=== PATIENT | male | born 1975 | race Caucasian/White ===

== ENCOUNTER 2018-07-16 14:23 | Emergency (ER) | payer MEDICARE ==
[~2018-07-16] VITALS: Ht 170.1 cm; Wt 58.1 kg
[~2018-07-16 14:23] MED LIST: ANAPROX DS550 MG PO; DAYPRO600 M1 PO; ROBAXIN750 MG PO; TEGRETOL200 MG PO; TRAZODONE150 MG PO; TRILAFON8 MG; TRIMOX500 MG PO; VALIUM10 MG; ZANTAC150 MG PO; ZOFRAN4 MG PO; [UNRECOGNIZED DRUG - OTHER]
[2018-07-16 14:24] VITALS: BP 103/62
[2018-07-16] MEDS ORDERED: Motrin,Rufen800 MG PO (14:38)
[2018-07-16] MEDS ORDERED: CEFADROXIL500 M1 PO (14:38)
== END 2018-07-16 16:10 | disposition home or self-care (01) ==
LOC: ED 14:23
DX: S92.422B Displaced fracture of distal phalanx of left great toe, initial encounter for open fracture (principal); Z79.899 Other long term (current) drug therapy; W55.19XA Other contact with horse, initial encounter; Y93.89 Activity, other specified; Y92.098 Other place in other non-institutional residence as the place of occurrence of the external cause; Y99.8 Other external cause status

== ENCOUNTER → 2018-08-25 | Outpatient (CLI) | payer MEDICARE ==
[~2018-08-25] MED LIST changes: +ANTIBIOTIC28.4 GM T; +CEFADROXIL500 M1 PO; +CEPHALEXIN500 M1 PO; +Motrin,Rufen800 MG PO; +SEPTDS PO
[2018-08-25 15:22] LABS: BASO # 0.1 10*3/uL (0.0-0.1); BASO % 1.2 % (0.0-1.0); EOS # 0.4 10*3/uL (0.0-0.4); EOS % 5.1 % (1.0-4.0); HEMATOCRIT 41.6 % (42.0-52.0); LYMPH # 3.5 10*3/uL (1.3-4.4); LYMPH % 45.2 % (27.0-41.0); MEAN CELL VOLUME 97.4 fl (80.0-94.0); MEAN CORPUSCULAR HGB 32.8 pg (27.0-31.0); MEAN CORPUSCULAR HGB CONC 33.7 g/dl (33.0-37.0); MEAN PLATELET VOLUME 10.5 fl (9.6-12.3); MONO # 0.7 10*3/uL (0.1-1.0); MONO % 8.6 % (3.0-9.0); NEUT # 3.1 10*3/uL (2.3-7.9); NEUT % 39.6 % (47.0-73.0); PLATELET COUNT AUTOMATED 227 10*3/uL (130-400); RED BLOOD COUNT 4.27 10*6/uL (4.50-5.90); RED CELL DISTRI WIDTH 13.5 % (0-14.5); WHITE BLOOD COUNT 7.8 10*3/uL (4.8-10.8)
[2018-08-25 15:52] LABS: ALBUMIN 3.4 gm/dl (3.1-4.5); ALKALINE PHOSPHATASE 63 U/L (45-117); BUN 12 mg/dl (7-24); CHLORIDE 106 mmol/L (98-107); CHOLESTEROL 141 mg/dL (<200); CREATININE 0.75 mg/dL (0.70-1.30); HDL CHOLESTEROL 30 mg/dl (40-60); LDL CHOLESTEROL 46 mg/dL (9-159); POTASSIUM 3.8 mmol/L (3.5-5.1); SGOT/AST 25 IU/L (3-35); SGPT/ALT 18 U/L (12-78); SODIUM 139 mmol/L (136-145); TOTAL PROTEIN 7.1 gm/dL (6.4-8.2); TRIGLYCERIDES 327 mg/dl (<150); VALPROIC ACID (DEPAKENE) 58.8 ug/ml (50-100); VLDL CHOLESTEROL 65 mg/dL (6-40)
[2018-08-25 16:12] LABS: VITAMIN D, 25-HYDROXY 24.9 ng/mL (30-100)
== END | disposition home or self-care (01) ==
LOC: LAB 14:39
PROVIDERS: Physician Assistant
DX: Z51.81 Encounter for therapeutic drug level monitoring (principal); E55.9 Vitamin D deficiency, unspecified; Z79.899 Other long term (current) drug therapy

== ENCOUNTER 2018-10-26 13:17 | Emergency (ER) | payer MEDICARE ==
[~2018-10-26] VITALS: Wt 56.2 kg
[~2018-10-26 13:17] MED LIST changes: -ANTIBIOTIC28.4 GM T; -CEPHALEXIN500 M1 PO; -SEPTDS PO
[2018-10-26 13:21] VITALS: BP 112/67
[2018-10-26] MEDS ORDERED: CEPHALEXIN500 M1 PO (15:48)
[2018-10-26] MEDS ORDERED: ANTIBIOTIC28.4 GM T (15:48)
[2018-10-26] MEDS ORDERED: SEPTDS PO (15:48)
== END 2018-10-26 16:30 | disposition home or self-care (01) ==
LOC: ED 13:17
DX: S92.402D Displaced unspecified fracture of left great toe, subsequent encounter for fracture with routine healing (principal); L08.9 Local infection of the skin and subcutaneous tissue, unspecified; F17.200 Nicotine dependence, unspecified, uncomplicated; Z79.899 Other long term (current) drug therapy; Z79.2 Long term (current) use of antibiotics; W55.19XD Other contact with horse, subsequent encounter

== ENCOUNTER 2019-07-02 07:19 | Emergency (ER) | payer MEDICARE ==
[~2019-07-02] VITALS: Ht 170.1 cm; Wt 58.1 kg
[~2019-07-02 07:19] MED LIST changes: +ANTIBIOTIC28.4 GM T; +CEPHALEXIN500 M1 PO; +SEPTDS PO
[2019-07-02 07:25] VITALS: BP 140/78
[2019-07-02] MEDS ORDERED: TYLENOL325 M1 PO (08:12)
[2019-07-02] MEDS ORDERED: NAPROSYN500 MG PO (08:12)
[2019-07-02] MEDS ORDERED: CYCLOBENZAPRINE10 MG PO (08:13)
== END 2019-07-02 09:00 | disposition home or self-care (01) ==
LOC: ED 07:19
DX: M54.42 Lumbago with sciatica, left side (principal); F17.210 Nicotine dependence, cigarettes, uncomplicated; Z79.2 Long term (current) use of antibiotics; Z79.899 Other long term (current) drug therapy

== ENCOUNTER 2019-07-14 09:23 | Emergency (ER) | payer MEDICARE ==
[~2019-07-14] VITALS: Ht 170.1 cm; Wt 57.6 kg
[~2019-07-14 09:23] MED LIST changes: +CYCLOBENZAPRINE10 MG PO; +NAPROSYN500 MG PO; +TYLENOL325 M1 PO
[2019-07-14 09:34] VITALS: BP 112/71
[2019-07-14] MEDS ORDERED: CYCLOBENZAPRINE10 MG PO (11:34)
[2019-07-14] MEDS ORDERED: NORCO 5-325 TA1 EACH PO (11:34)
[2019-07-14] MEDS ORDERED: NAPROSYN500 MG PO (11:34)
== END 2019-07-14 11:39 | disposition home or self-care (01) ==
LOC: ED 09:23
DX: M54.42 Lumbago with sciatica, left side (principal); F31.9 Bipolar disorder, unspecified; Z79.2 Long term (current) use of antibiotics; Z79.899 Other long term (current) drug therapy

== ENCOUNTER → 2019-07-31 | Outpatient (CLI) | payer OTHER, MEDICAID ==
[~2019-07-31] MED LIST changes: +NORCO 5-325 TA1 EACH PO
== END | disposition home or self-care (01) ==
LOC: US 14:30
DX: Z90.79 Acquired absence of other genital organ(s) (principal)